=== PATIENT | male | born 1940 | race African-American/Black ===

== ENCOUNTER 2022-11-20 04:28 | Day surgery (SDC) | payer OTHER ==
[2022-11-19 10:11] VITALS: BMI 27.7
[2022-11-20 14:02] VITALS: TEMP 96.6
[2022-11-20 14:46] VITALS: BP 128/63; PULSE 65; RESP 21
== END 2022-11-20 15:20 | disposition home or self-care (01) ==
LOC: JASU-ENDO 04:28
PROVIDERS: ATTEND Internal Medicine Gastroenterology
PROC: 0DB78ZX Excision of Stomach, Pylorus, Via Natural or Artificial Opening Endoscopic, Diagnostic (ICD-10-PCS; 2022-11-20)
PROC: 0DB68ZX Excision of Stomach, Via Natural or Artificial Opening Endoscopic, Diagnostic (ICD-10-PCS; 2022-11-20)
PROC: 0DB38ZX Excision of Lower Esophagus, Via Natural or Artificial Opening Endoscopic, Diagnostic (ICD-10-PCS; principal; 2022-11-20 12:00)
DX: K29.50 Unspecified chronic gastritis without bleeding (principal); K44.9 Diaphragmatic hernia without obstruction or gangrene; K20.90 Esophagitis, unspecified without bleeding
CPT/HCPCS: 88305-TC; 88342-TC